=== PATIENT | female | born 1985 | race American Indian/Alaskan Native ===

== ENCOUNTER 2020-05-17 15:13 | Emergency (ER) | payer MEDICAID ==
--- NOTE | 2020-05-17 16:03 | Emergency Department Report ---
ED General Adult HPI - General Chief complaint: Chest Pain Stated complaint: FAST HEART RATE Time Seen by Provider: 05/17/20 15:33 Source: EMS Mode of arrival: Stretcher Limitations: No Limitations - History of Present Illness Initial comments: Patient presents to the emergency department via EMS for heart palpitations. Patient states today she was at home when she felt her heart beating fast as well as have some chest tightness. Per EMS arrival the patient was in SVT and they were able to convert it with vagal maneuver. Patient states that she r ecently stopped smoking but now vapes daily. She also endorses to being a significant caffeine user. Patient denies any illicit drugs or [id number] medications. Patient states now she no longer has any symptoms. -: Sudden Severity scale (0 -10): 0 Improves with: none Worsens with: none Associated Symptoms: denies other symptoms Treatments Prior to Arrival: none - Related Data Previous Rx's Medication Instructions Recorded Last Taken Type Sulfamethoxazole/Trimethoprim 1 each PO BID #14 tablet 05/17/20 Unknown Rx [Bactrim DS TAB] Allergies Allergy/AdvReac Type Severity Reaction Status Date / Time triamcinolone Allergy Hives Verified 05/17/20 15:53 ED Review of Systems ROS: Stated complaint: FAST HEART RATE Other details as noted in HPI Comment: All other systems reviewed and negative Constitutional: denies: chills, fever Eyes: denies: eye pain, eye discharge, vision change ENT: denies: ear pain, throat pain Respiratory: denies: cough, shortness of breath, wheezing Cardiovascular: palpitations. denies: chest pain Endocrine: no symptoms reported Gastrointestinal: denies: abdominal pain, nausea, diarrhea Genitourinary: denies: urgency, dysuria, discharge Musculoskeletal: denies: back pain, joint swelling, arthralgia Skin: denies: rash, lesions Neurological: denies: headache, weakness, paresthesias Psychiatric: denies: anxiety, depression Hematological/Lymphatic: denies: easy bleeding, easy bruising ED Past Medical Hx - Past Medical History Previous Medical History?: No - Surgical History Past Surgical History?: No - Social History Smoking Status: Former Smoker Substance Use Type: None - Medications Home Medications: Home Medications Medication Instructions Recorded Confirmed Last Taken Type Sulfamethoxazole/Trimethoprim 1 each PO BID #14 tablet 05/17/20 Unknown Rx [Bactrim DS TAB] ED Physical Exam - General Limitations: No Limitations General appearance: alert, in no apparent distress - Head Head exam: Present: atraumatic, normocephalic - Eye Eye exam: Present: normal appearance, PERRL, EOMI - ENT ENT exam: Present: mucous membranes moist - Neck Neck exam: Present: normal inspection - Respiratory Respiratory exam: Present: normal lung sounds bilaterally. Absent: respiratory distress - Cardiovascular Cardiovascular Exam: Present: regular rate, normal rhythm. Absent: systolic murmur, diastolic murmur, rubs, gallop - GI/Abdominal GI/Abdominal exam: Present: soft, normal bowel sounds. Absent: distended, tenderness - Extremities Exam Extremities exam: Present: normal inspection - Back Exam Back exam: Present: normal inspection - Neurological Exam Neurological exam: Present: alert, oriented X3, CN II-XII intact. Absent: motor sensory deficit - Psychiatric Psychiatric exam: Present: normal affect, normal mood - Skin Skin exam: Present: warm, dry, intact, normal color. Absent: rash ED Course Vital Signs 05/17/20 05/17/20 05/17/20 15:20 15:30 15:46 Temperature 98.6 F Pulse Rate 67 85 72 Respiratory 14 17 14 Rate Blood Pressure 125/76 110/67 O2 Sat by Pulse 98 99 100 Oximetry 05/17/20 05/17/20 05/17/20 16:00 16:30 17:00 Temperature Pulse Rate 81 73 69 Respiratory 12 10 L 20 Rate Blood Pressure 104/68 99/60 102/55 O2 Sat by Pulse 98 98 96 Oximetry 05/17/20 05/17/20 05/17/20 17:30 18:01 18:31 Temperature Pulse Rate 71 72 68 Respiratory 9 L 22 28 H Rate Blood Pressure 108/56 108/56 108/56 O2 Sat by Pulse 98 98 97 Oximetry 05/17/20 05/17/20 05/17/20 19:01 19:15 19:31 Temperature Pulse Rate 64 66 66 Respiratory 13 12 15 Rate Blood Pressure 108/56 108/56 108/56 O2 Sat by Pulse 99 99 98 Oximetry 05/17/20 05/17/20 19:45 19:49 Temperature 98.1 F Pulse Rate 65 Respiratory 13 Rate Blood Pressure 108/56 O2 Sat by Pulse 100 Oximetry ED Medical Decision Making - Lab Data Result diagrams: 05/17/20 15:53 05/17/20 15:53 Lab Results 05/17/20 05/17/20 05/17/20 Range/Units 15:53 15:53 15:53 WBC 11.4 H (4.5-11.0) K/mm3 RBC 3.77 (3.65-5.03) M/mm3 Hgb 12.4 (10.1-14.3) gm/dl Hct 36.6 (30.3-42.9) % MCV 97 (79-97) fl MCH 33 H (28-32) pg MCHC 34 (30-34) % RDW 12.8 L (13.2-15.2) % Plt Count 217 (140-440) K/mm3 Lymph % (Auto) 15.9 (13.4-35.0) % [place] % (Auto) 6.6 (0.0-7.3) % Eos % (Auto) 0.8 (0.0-4.3) % Baso % (Auto) 0.3 (0.0-1.8) % Lymph # (Auto) 1.8 (1.2-5.4) K/mm3 [place] # (Auto) 0.8 (0.0-0.8) K/mm3 Eos # (Auto) 0.1 (0.0-0.4) K/mm3 Baso # (Auto) 0.0 (0.0-0.1) K/mm3 Seg Neutrophils % 76.4 H (40.0-70.0) % Seg Neutrophils # 8.7 H (1.8-7.7) K/mm3 PT 14.0 (12.2-14.9) Sec. INR 1.06 (0.87-1.13) APTT 32.0 (24.2-36.6) Sec. Sodium 140 (137-145) mmol/L Potassium 3.5 L (3.6-5.0) mmol/L Chloride 105.7 (98-107) mmol/L Carbon Dioxide 22 (22-30) mmol/L Anion Gap 16 mmol/L BUN 10 (7-17) mg/dL Creatinine 0.6 (0.6-1.2) mg/dL Estimated GFR > 60 ml/min BUN/Creatinine Ratio 17 % Glucose 99 (65-100) mg/dL Calcium 8.9 (8.4-10.2) mg/dL Magnesium 2.00 (1.7-2.3) mg/dL Total Bilirubin 0.20 (0.1-1.2) mg/dL AST 17 (5-40) units/L ALT 14 (7-56) units/L Alkaline Phosphatase 45 (35-129) units/L Total Protein 6.8 (6.3-8.2) g/dL Albumin 4.2 (3.9-5) g/dL Albumin/Globulin Ratio 1.6 % Urine Color (Yellow) Urine Turbidity (Clear) Urine pH (5.0-7.0) Ur Specific [place] (1.003-1.030) Urine Protein (Negative) mg/dL Urine Glucose (UA) (Negative) mg/dL Urine Ketones (Negative) mg/dL Urine Blood (Negative) Urine Nitrite (Negative) Urine Bilirubin (Negative) Urine Urobilinogen (<2.0) mg/dL Ur Leukocyte Esterase (Negative) Urine WBC (Auto) (0.0-6.0) /HPF Urine RBC (Auto) (0.0-6.0) /HPF U Epithel Cells (Auto) (0-13.0) /HPF Urine Bacteria (Auto) (Negative) /HPF Urine Mucus /HPF U Marijuana (THC) Screen 05/17/20 05/17/20 Range/Units 17:59 17:59 WBC (4.5-11.0) K/mm3 RBC (3.65-5.03) M/mm3 Hgb (10.1-14.3) gm/dl Hct (30.3-42.9) % MCV (79-97) fl MCH (28-32) pg MCHC (30-34) % RDW (13.2-15.2) % Plt Count (140-440) K/mm3 Lymph % (Auto) (13.4-35.0) % [place] % (Auto) (0.0-7.3) % Eos % (Auto) (0.0-4.3) % Baso % (Auto) (0.0-1.8) % Lymph # (Auto) (1.2-5.4) K/mm3 [place] # (Auto) (0.0-0.8) K/mm3 Eos # (Auto) (0.0-0.4) K/mm3 Baso # (Auto) (0.0-0.1) K/mm3 Seg Neutrophils % (40.0-70.0) % Seg Neutrophils # (1.8-7.7) K/mm3 PT (12.2-14.9) Sec. INR (0.87-1.13) APTT (24.2-36.6) Sec. Sodium (137-145) mmol/L Potassium (3.6-5.0) mmol/L Chloride (98-107) mmol/L Carbon Dioxide (22-30) mmol/L Anion Gap mmol/L BUN (7-17) mg/dL Creatinine (0.6-1.2) mg/dL Estimated GFR ml/min BUN/Creatinine Ratio % Glucose (65-100) mg/dL Calcium (8.4-10.2) mg/dL Magnesium (1.7-2.3) mg/dL Total Bilirubin (0.1-1.2) mg/dL AST (5-40) units/L ALT (7-56) units/L Alkaline Phosphatase (35-129) units/L Total Protein (6.3-8.2) g/dL Albumin (3.9-5) g/dL Albumin/Globulin Ratio % Urine Color Yellow (Yellow) Urine Turbidity Slightly-cloudy (Clear) Urine pH 6.0 (5.0-7.0) Ur Specific [place] 1.026 (1.003-1.030) Urine Protein 30 mg/dl (Negative) mg/dL Urine Glucose (UA) Neg (Negative) mg/dL Urine Ketones Neg (Negative) mg/dL Urine Blood Neg (Negative) Urine Nitrite Neg (Negative) Urine Bilirubin Neg (Negative) Urine Urobilinogen 4.0 (<2.0) mg/dL Ur Leukocyte Esterase Lg (Negative) Urine WBC (Auto) 16.0 H (0.0-6.0) /HPF Urine RBC (Auto) 21.0 (0.0-6.0) /HPF U Epithel Cells (Auto) 17.0 H (0-13.0) /HPF Urine Bacteria (Auto) 1+ (Negative) /HPF Urine Mucus 3+ /HPF U Marijuana (THC) Screen Presumptive positive - EKG Data -: EKG Interpreted by Ms EKG shows normal: sinus rhythm Rate: normal - Radiology Data Radiology results: report reviewed - Medical Decision Making Review of the patient's twelve-lead from EMS shows SVT Discussed the patient with Dr. Snowden and was agreed that we will send the patient home metoprolol Reviewed the patient's monitor during her ED stay her heart rate ranged from 60 to 70 bpm so at this time I thought it would be best not to give the patient metoprolol for home Also review of the patient's urinalysis shows that she is positive for THC Review of laboratory values shows a UTI Critical care attestation.: If time is entered above; I have spent that time in minutes in the direct care o f this critically ill patient, excluding procedure time. ED Disposition Clinical Impression: Palpitations, Arrhythmia, UTI (urinary tract infection) Disposition: DC-01 TO HOME OR SELFCARE Is pt being admited?: No Does the pt Need Aspirin: No Condition: Stable Instructions: Supraventricular Tachycardia (ED) Additional Instructions: return if worse Referrals: JUANITA SNOWDEN MD [Staff Physician] - 24 Hours Time of Disposition: 19:56
[2020-05-17 16:21] LABS: Basophils % (Auto) 0.3 % (0.0-1.8); Eosinophils # (Auto) 0.1 K/mm3 (0.0-0.4); Eosinophils % (Auto) 0.8 % (0.0-4.3); Hematocrit 36.6 % (30.3-42.9); Hemoglobin 12.4 gm/dl (10.1-14.3); Lymphocytes # (Auto) 1.8 K/mm3 (1.2-5.4); Lymphocytes % (Auto) 15.9 % (13.4-35.0); Mean Corpuscular HGB Conc 34 % (30-34); Mean Corpuscular Volume 97 fl (79-97); Monocytes # (Auto) 0.8 K/mm3 (0.0-0.8); Monocytes % (Auto) 6.6 % (0.0-7.3); Platelet Count 217 K/mm3 (140-440); Red Blood Count 3.77 M/mm3 (3.65-5.03); Red Cell Distribution Width 12.8 % (13.2-15.2)
[2020-05-17 16:31] LABS: INR 1.06 (0.87-1.13)
[2020-05-17 16:36] LABS: Alanine Aminotransferase 14 units/L (7-56); Albumin 4.2 g/dL (3.9-5); Blood Urea Nitrogen 10 mg/dL (7-17); Calcium 8.9 mg/dL (8.4-10.2); Hemolysis Index 5
[2020-05-17 16:41] LABS: BUN/Creatinine Ratio 17
--- NOTE | 2020-05-17 16:48 | XRay Report ---
CHEST 1 VIEW 05/17/2020 3:41 PM INDICATION / CLINICAL INFORMATION: palpitations. COMPARISON: None available. FINDINGS: SUPPORT DEVICES: None. HEART / MEDIASTINUM: No significant abnormality. LUNGS / PLEURA: No significant pulmonary or pleural abnormality. No pneumothorax. ADDITIONAL FINDINGS: No significant additional findings. IMPRESSION: 1. No acute findings. Signer Name: Rm Frias MD Signed: 05/17/2020 4:44 PM Workstation Name: [id number]
[2020-05-17 18:00] VITALS: BP 108/56
[2020-05-17 19:38] LABS: Bacteria,Urine 1+ /HPF (Negative); Bilirubin,Urine NEG (Negative); Blood,Urine NEG (Negative); Color,Urine Yellow (Yellow); Mucus,Urine 3+ /HPF
[2020-05-17 19:44] LABS: Amphetamine Screen,Urine PRESUMPTIVE NEGATIVE; Benzodiazepines Screen,Urine PRESUMPTIVE NEGATIVE; Cannabinoid Screen,Urine PRESUMPTIVE POSITIVE; Cocaine Screen,Urine PRESUMPTIVE NEGATIVE; Methadone Screen,Urine PRESUMPTIVE NEGATIVE; Opiate Screen,Urine PRESUMPTIVE NEGATIVE
== END 2020-05-17 20:34 | disposition home or self-care (01) ==
LOC: ED 15:13
DX: I49.9 Cardiac arrhythmia, unspecified (principal); N39.0 Urinary tract infection, site not specified; R00.2 Palpitations; Z88.8 Allergy status to other drugs, medicaments and biological substances; Z79.899 Other long term (current) drug therapy; Z87.891 Personal history of nicotine dependence
CPT/HCPCS: 36415; 71045; 80053; 80307; 81001; 83735; 85025; 85610; 85730; 87086; 93005

== ENCOUNTER 2020-05-19 12:24 | Emergency (ER) | payer MEDICAID ==
--- NOTE | 2020-05-19 12:58 | Emergency Department Report ---
ED Palpitations HPI - General Chief Complaint: Arrhythmia/Palpitations Stated Complaint: CHEST PAIN Time Seen by Provider: 05/19/20 12:41 Source: patient, EMS Mode of arrival: Stretcher Limitations: No Limitations - History of Present Illness Initial Comments: Chief complaint: Rapid heartbeat HPI: This is a 34-year-old female who was evaluated at this hospital 2 days ago for SVT. She also was evaluated at [facility] 2 times since ED encou nter here on Sunday. Today she had rapid heartbeat and palpitations. EMS discovered SVT. With carotid massage the rhythm converted to sinus rhythm. Patient has been in her normal state of health. She started vaping e-cigarettes 3 weeks ago. She also smokes marijuana. She is attempting to stop smoking cigarettes. Patient is not taking oral contraceptives. She has been quite healthy otherwise. According to EMR patient windows mobile developer was consulted. Home medication metoprolol was considered. However patient's heart rate at that time was too low to tolerate metoprolol. Radiology impression of second set of left knee radiographs reveal satisfactory reduction of the left patella without fracture or significant degenerative changes. Mild soft tissue swelling. I also personally reviewed the images. I reviewed EKG obtained on 05/17/2020 normal sinus rhythm, I do not detect delta wave morphology indicative of WPW MD Complaint: rapid heart beat -: Sudden, This morning Context: occured during rest Arrythmia History: SVT Associated Symptoms: denies other symptoms Treatments Prior to Arrival: vagal maneuvers (Carotid massage) - Related Data Previous Rx's Medication Instructions Recorded Last Taken Type Sulfamethoxazole/Trimethoprim 1 each PO BID #14 tablet 05/17/20 Unknown Rx [Bactrim DS TAB] Metoprolol [Lopressor TAB] 1 tab PO DAILY #30 tablet 05/19/20 Unknown Rx Allergies Allergy/AdvReac Type Severity Reaction Status Date / Time triamcinolone Allergy Hives Verified 05/17/20 15:53 ED Review of Systems ROS: Stated complaint: CHEST PAIN Other details as noted in HPI Comment: All other systems reviewed and negative Constitutional: denies: fever, malaise Respiratory: denies: cough, shortness of breath Cardiovascular: denies: chest pain Gastrointestinal: denies: abdominal pain, nausea, vomiting Skin: denies: rash, lesions ED Past Medical Hx - Past Medical History Previous Medical History?: Yes Additional medical history: SVT - Surgical History Past Surgical History?: No - Social History Smoking Status: Former Smoker Substance Use Type: Marijuana - Medications Home Medications: Home Medications Medication Instructions Recorded Confirmed Last Taken Type Sulfamethoxazole/Trimethoprim 1 each PO BID #14 tablet 05/17/20 Unknown Rx [Bactrim DS TAB] Metoprolol [Lopressor TAB] 1 tab PO DAILY #30 tablet 05/19/20 Unknown Rx ED Physical Exam - General Limitations: No Limitations General appearance: alert, in no apparent distress - Head Head exam: Present: atraumatic, normocephalic - Eye Eye exam: Present: normal appearance - ENT ENT exam: Present: mucous membranes moist - Neck Neck exam: Present: normal inspection, full ROM - Respiratory Respiratory exam: Present: normal lung sounds bilaterally. Absent: respiratory distress, wheezes, rales, rhonchi - Cardiovascular Cardiovascular Exam: Present: regular rate, normal rhythm, normal heart sounds. Absent: systolic murmur, diastolic murmur, rubs, gallop - GI/Abdominal GI/Abdominal exam: Present: soft, normal bowel sounds. Absent: distended, tenderness, guarding, rebound - Extremities Exam Extremities exam: Present: normal inspection - Neurological Exam Neurological exam: Present: alert, oriented X3 - Psychiatric Psychiatric exam: Present: normal affect, normal mood - Skin Skin exam: Present: warm, dry, intact, normal color. Absent: rash ED Course Vital Signs 05/19/20 05/19/20 05/19/20 12:47 13:00 13:16 Pulse Rate 114 H 85 Respiratory 10 L 10 L 13 Rate Blood Pressure 110/68 110/68 O2 Sat by Pulse 99 99 100 Oximetry 05/19/20 05/19/20 05/19/20 13:30 13:41 14:00 Pulse Rate 92 H 73 68 Respiratory 11 L 23 Rate Blood Pressure 110/63 110/63 111/65 O2 Sat by Pulse 97 100 Oximetry 05/19/20 05/19/20 05/19/20 14:30 15:00 15:30 Pulse Rate 73 68 63 Respiratory 11 L 14 12 Rate Blood Pressure 118/55 126/48 105/61 O2 Sat by Pulse 98 97 96 Oximetry - Reevaluation(s) Reevaluation #1: 05/19/20 13:08 Patient has sudden onset of chest pain. Heart rate 142 bpm on monitor. With deep breathing heart rate rapidly decreased. ED Medical Decision Making - Lab Data Result diagrams: 05/19/20 14:14 05/19/20 14:14 Laboratory Results - last 24 hr 05/19/20 05/19/20 05/19/20 14:14 14:14 14:14 WBC 12.9 H RBC 4.17 Hgb 13.5 Hct 39.7 MCV 95 MCH 33 H MCHC 34 RDW 12.6 L Plt Count 238 Lymph % (Auto) 12.8 L [place] % (Auto) 5.7 Eos % (Auto) 0.1 Baso % (Auto) 0.2 Lymph # (Auto) 1.7 [place] # (Auto) 0.7 Eos # (Auto) 0.0 Baso # (Auto) 0.0 Seg Neutrophils % 81.2 H Seg Neutrophils # 10.4 H D-Dimer 175.50 Sodium 139 Potassium 3.5 L Chloride 104.6 Carbon Dioxide 20 L Anion Gap 18 BUN 8 Creatinine 0.6 Estimated GFR > 60 BUN/Creatinine Ratio 13 Glucose 78 Calcium 9.1 NT-Pro-B Natriuret Pep 70.25 TSH 05/19/20 14:14 WBC RBC Hgb Hct MCV MCH MCHC RDW Plt Count Lymph % (Auto) [place] % (Auto) Eos % (Auto) Baso % (Auto) Lymph # (Auto) [place] # (Auto) Eos # (Auto) Baso # (Auto) Seg Neutrophils % Seg Neutrophils # D-Dimer Sodium Potassium Chloride Carbon Dioxide Anion Gap BUN Creatinine Estimated GFR BUN/Creatinine Ratio Glucose Calcium NT-Pro-B Natriuret Pep TSH 1.010 - EKG Data -: EKG Interpreted by Me EKG shows normal: sinus rhythm, axis, intervals, QRS complexes, ST-T waves Rate: normal - EKG Data When compared to previous EKG there are: no significant change Interpretation: normal EKG 05/19/20 13:21 EKG obtained 1309 EKG interpreted by nh Normal sinus rhythm normal axis QRS 96 ms ID 127 ms QTC within normal limits. No ST elevation no delta wave morphology. Unchanged from 05/19/2020 - Medical Decision Making Patient presents with recurrent SVT. SVT converted to sinus rhythm using car otid massage performed by EMS. Patient does not has risk factors for pulmonary embolism. I reviewed today's EKG and previous EKG, no indication of WPW. Patient has normal ID interval. Normal QRS interval. No delta wave morphology. Considering patient's heart rate was approximately 150 bpm WPW not likely in this scenario. Patient had 3 recurrences of tachycardia. According to the quality assurance monitor final, P waves are present. The I reviewed the quality assurance monitor final during episodes, the last 2 episodes of tachycardia was obviously sinus tachycardia. Heart rate max 150 to 160 bpm which rapidly resolved with deep breathing. Consequently I have initiated investigation for causes of sinus tachycardia such as hyperthyroidism, pulmonary embolism. CBC within normal labs with exception of mild leukocytosis. No evidence of infection on clinical exam. Chemistry unremarkable. TSH D-dimer within normal limits. . Other consideration is pericarditis myocarditis. Patient has follow-up with windows mobile developer 1 PM tomorrow. She understands to take next dose of metoprolol in the morning. She has not had subsequent episodes of tachycardia after receiving metoprolol. Patient tolerated metoprolol without bradycardia or hypotension. Patient also understands follow-up with outpatient primary care physician. Critical care attestation.: If time is entered above; I have spent that time in minutes in the direct care of this critically ill patient, excluding procedure time. ED Disposition Clinical Impression: SVT (supraventricular tachycardia), Sinus tachycardia Disposition: DC-01 TO HOME OR SELFCARE Is pt being admited?: No Does the pt Need Aspirin: No Condition: Stable Instructions: Supraventricular Tachycardia (ED) Prescriptions: Metoprolol [Lopressor TAB] 1 tab PO DAILY #30 tablet Referrals: BOBO HE MD [Staff Physician] - 3-5 Days
[2020-05-19] MEDS ORDERED: METOPROLOL TARTRATE 50 MG TAB PO ONE (13:25)
[2020-05-19 14:40] LABS: Basophils % (Auto) 0.2 % (0.0-1.8); Eosinophils % (Auto) 0.1 % (0.0-4.3); Hematocrit 39.7 % (30.3-42.9); Hemoglobin 13.5 gm/dl (10.1-14.3); Lymphocytes # (Auto) 1.7 K/mm3 (1.2-5.4); Lymphocytes % (Auto) 12.8 % (13.4-35.0); Mean Corpuscular HGB Conc 34 % (30-34); Mean Corpuscular Volume 95 fl (79-97); Monocytes # (Auto) 0.7 K/mm3 (0.0-0.8); Monocytes % (Auto) 5.7 % (0.0-7.3); Platelet Count 238 K/mm3 (140-440); Red Blood Count 4.17 M/mm3 (3.65-5.03); Red Cell Distribution Width 12.6 % (13.2-15.2)
[2020-05-19 15:03] LABS: Blood Urea Nitrogen 8 mg/dL (7-17); Calcium 9.1 mg/dL (8.4-10.2); Hemolysis Index 7
[2020-05-19 15:11] LABS: BUN/Creatinine Ratio 13
[2020-05-19 15:57] VITALS: BP 105/61
== END 2020-05-19 16:20 | disposition home or self-care (01) ==
LOC: ED 12:24
DX: I47.1 Supraventricular tachycardia (principal); I49.5 Sick sinus syndrome; F12.10 Cannabis abuse, uncomplicated; Z87.891 Personal history of nicotine dependence; Z79.899 Other long term (current) drug therapy; Z88.8 Allergy status to other drugs, medicaments and biological substances
CPT/HCPCS: 36415; 80048; 83880; 84443; 85025; 85379; 93005

== ENCOUNTER 2020-05-20 04:12 | Emergency (ER) | payer MEDICAID ==
[2020-05-20 05:12] LABS: Basophils % (Auto) 0.4 % (0.0-1.8); Eosinophils # (Auto) 0.1 K/mm3 (0.0-0.4); Eosinophils % (Auto) 0.7 % (0.0-4.3); Hematocrit 38.7 % (30.3-42.9); Hemoglobin 13.3 gm/dl (10.1-14.3); Lymphocytes # (Auto) 2.2 K/mm3 (1.2-5.4); Lymphocytes % (Auto) 21.2 % (13.4-35.0); Mean Corpuscular HGB Conc 34 % (30-34); Mean Corpuscular Volume 96 fl (79-97); Monocytes # (Auto) 0.7 K/mm3 (0.0-0.8); Monocytes % (Auto) 6.6 % (0.0-7.3); Platelet Count 241 K/mm3 (140-440); Red Blood Count 4.05 M/mm3 (3.65-5.03); Red Cell Distribution Width 12.7 % (13.2-15.2)
[2020-05-20 05:31] LABS: Blood Urea Nitrogen 8 mg/dL (7-17); Calcium 9.3 mg/dL (8.4-10.2); Hemolysis Index 5
[2020-05-20 05:44] LABS: BUN/Creatinine Ratio 13
--- NOTE | 2020-05-20 05:45 | XRay Report ---
CHEST 1 VIEW INDICATION / CLINICAL INFORMATION: Chest Pain. COMPARISON: 05/17/2020 FINDINGS: SUPPORT DEVICES: None. HEART / MEDIASTINUM: No significant abnormality. LUNGS / PLEURA: No significant pulmonary or pleural abnormality.. No pneumothorax. ADDITIONAL FINDINGS: No significant additional findings. IMPRESSION: 1. No acute findings. Signer Name: Stevie Oconnor MD Signed: 05/20/2020 5:41 AM Workstation Name: [id number]
[2020-05-20] MEDS ORDERED: METOPROLOL TARTRATE 5 MG/5 ML INJ IV ONE (07:24)
[2020-05-20] MEDS ORDERED: SODIUM CHLORIDE 0.9% 500 ML 500 ML IV ONE (07:24)
--- NOTE | 2020-05-20 07:39 | Emergency Department Report ---
HPI - General Chief Complaint: Dizziness Time Seen by Provider: 05/20/20 07:00 - HPI HPI: This is a 34-year-old female who presents to the emergency department for the third time in 4 days with a complaint of palpitations and tachycardia. The patient initially presented on 05/17/2020 via EMS and was found to have SVT but at that time it converted with vagal maneuvers. Cardiology was contacted and the patient was discharged home on metoprolol. The patient returned yesterday with the same symptoms. During this visit the patient had multiple episodes in which she had sinus tachycardia going up into the 140s. Once again, the patient is able to get the heart rate to come down with deep breathing and vagal maneuvers. She had a further work-up for etiology of sinus tachycardia, including TSH and D-dimer, but everything resulted as negative or within normal limits and the patient was discharged home. The patient has an appointment at 1 PM today with someone from [facility] cardiology. Overnight, as well as earlier this morning, the patient once again began having palpitations and tachycardia and presents again for further evaluation. Other than this recent SVT/tachycardia, the patient does not have any other past medical history. Patiently recently quit smoking cigarettes but has been using electronic vaping. She denies any illicit drugs. She denies any fever, chest pain, lower extremity swelling, nausea, vomiting or diaphoresis. No recent travel or sick contacts at home. ED Past Medical Hx - Past Medical History Previous Medical History?: Yes Additional medical history: SVT - Surgical History Past Surgical History?: No - Social History Smoking Status: Former Smoker - Medications Home Medications: Home Medications Medication Instructions Recorded Confirmed Last Taken Type Sulfamethoxazole/Trimethoprim 1 each PO BID #14 tablet 05/17/20 Unknown Rx [Bactrim DS TAB] Metoprolol [Lopressor TAB] 1 tab PO DAILY #30 tablet 05/19/20 Unknown Rx ED Review of Systems ROS: Stated complaint: DIZZINESS/HOT FLASHES Other details as noted in HPI Comment: All other systems reviewed and negative Constitutional: denies: chills, fever Eyes: denies: eye pain, vision change ENT: denies: ear pain, throat pain Respiratory: denies: cough, shortness of breath Cardiovascular: palpitations. denies: chest pain Gastrointestinal: denies: abdominal pain, vomiting Genitourinary: denies: dysuria, discharge Musculoskeletal: denies: back pain, arthralgia Skin: denies: rash, lesions Neurological: denies: headache, weakness Physical Exam - Physical Exam Vital Signs: Vital Signs 05/20/20 04:19 Temperature 98.2 F Pulse Rate 78 Respiratory 18 Rate Blood Pressure 117/70 O2 Sat by Pulse 98 Oximetry Physical Exam: GENERAL: The patient is well-developed well-nourished. HENT: Normocephalic. Atraumatic. Patient has moist mucous membranes. EYES: Extraocular motions are intact. NECK: Supple. Trachea is midline. CHEST/LUNGS: Clear to auscultation. There is no respiratory distress noted. HEART/CARDIOVASCULAR: Regular. There is no tachycardia. There is no murmur. ABDOMEN: Abdomen is soft, nontender. Patient has normal bowel sounds. SKIN: Skin is warm and dry. NEURO: The patient is awake, alert, and oriented. The patient is cooperative. Normal speech. MUSCULOSKELETAL: There is no tenderness or deformity. There is no limitation range of motion. ED Course Vital Signs 05/20/20 04:19 Temperature 98.2 F Pulse Rate 78 Respiratory 18 Rate Blood Pressure 117/70 O2 Sat by Pulse 98 Oximetry - Consultations Consultation #1: 05/20/20 07:50 I spoke with the floral associate on-call for [facility], Dr. Horvath. We discussed the patient's previous and current presentations, her treatment, and the fact that she has an appointment with them today at 1 PM. He recommends that we monitor for another hour or so and if the symptoms subside, then the patient can follow-up outpatient for her 1 PM appointment. If the patient begins to have further episodes of moderate to severe tachycardia or SVT, then the patient should be admitted. ED Medical Decision Making - Lab Data Result diagrams: 05/20/20 04:40 05/20/20 04:40 - EKG Data -: EKG Interpreted by Me EKG shows normal: sinus rhythm (PACs), axis, intervals, QRS complexes, ST-T waves Rate: normal - EKG Data When compared to previous EKG there are: no significant change Interpretation: unchanged when compared t (05/17/20) - Radiology Data Radiology results: image reviewed interpreted by me: Chest x-ray does not show any acute process. There are no pleural effusions, obvious pneumonia and there is no pneumothorax. No significant cardiomegaly. - Medical Decision Making This patient presents with a return of her palpitations and tachycardia and today's visit is the third visit in 4 days. During my initial examination, I did see one instance in which the heart rate went up into the 130s but quickly came back down when the patient did some slow deep breathing, vagal maneuvers. The rest of the patient's ED course has been unremarkable and the heart rate has remained within normal limits. An EKG was done that does not show any ST elevation AL or dysrhythmia. Chest x-ray does not show any pneumonia, pleural effusions, pneumothorax, or any acute process. Her labs have been unremarkable including CBC, metabolic panel, and negative troponins x2. The patient was seen here yesterday and had a normal thyroid level and a negative D-dimer at that time. I spoke with cardiology, who agrees with the plan to give the patient a dose of metoprolol. She was reevaluated multiple times over close to 6 hours in the emergency department and there has been no return of any significant or sustained tachycardia or any signs of SVT. She has an appointment with [facility] heart cardiology today at 1 PM and will be discharged to follow-up with them at her scheduled appointment. She will return to the emergency department with any worsening of her symptoms or with any acute distress. Critical Care Time: No Critical care attestation.: If time is entered above; I have spent that time in minutes in the direct care of this critically ill patient, excluding procedure time. ED Disposition Clinical Impression: Palpitations, Tachycardia Disposition: DC-01 TO HOME OR SELFCARE Is pt being admited?: No Condition: Stable Instructions: Palpitations (ED) Additional Instructions: Please follow-up with the floral associate today at 1 PM as previously scheduled. Return to the emergency department immediately with any return of your symptoms or with any acute distress. Referrals: [facility] [Provider Group] - 05/20/20 1:00 pm Time of Disposition: 09:54
[2020-05-20 11:18] VITALS: BP 103/57
== END 2020-05-20 10:05 | disposition home or self-care (01) ==
LOC: ED 04:12
DX: R00.2 Palpitations (principal); R00.0 Tachycardia, unspecified; Z87.891 Personal history of nicotine dependence; Z79.899 Other long term (current) drug therapy; Z88.8 Allergy status to other drugs, medicaments and biological substances
CPT/HCPCS: 36415; 71045; 80048; 84484; 84703; 85025; 93005; 96361; 96374; 99284; J7040

== ENCOUNTER 2020-05-20 18:24 | Emergency (ER) | payer MEDICAID ==
[2020-05-20 18:57] LABS: Basophils % (Auto) 0.4 % (0.0-1.8); Eosinophils % (Auto) 0.2 % (0.0-4.3); Hematocrit 37.8 % (30.3-42.9); Lymphocytes # (Auto) 1.8 K/mm3 (1.2-5.4); Lymphocytes % (Auto) 15.4 % (13.4-35.0); Mean Corpuscular HGB Conc 34 % (30-34); Mean Corpuscular Volume 95 fl (79-97); Monocytes # (Auto) 0.8 K/mm3 (0.0-0.8); Monocytes % (Auto) 6.5 % (0.0-7.3); Platelet Count 235 K/mm3 (140-440); Red Blood Count 3.99 M/mm3 (3.65-5.03); Red Cell Distribution Width 12.8 % (13.2-15.2)
--- NOTE | 2020-05-20 19:04 | XRay Report ---
CHEST 2 VIEWS INDICATION: MAIN. COMPARISON: Earlier the same day FINDINGS: Support devices: None. Heart: Within normal limits. Lungs: No acute air space or interstitial disease. Pleura: No significant pleural effusion. No pneumothorax. Additional findings: None. IMPRESSION: 1. No acute findings. Signer Name: Jacob Harden MD Signed: 05/20/2020 7:00 PM Workstation Name: [id number]
[2020-05-20 19:07] LABS: Blood Urea Nitrogen 7 mg/dL (7-17); Calcium 9.2 mg/dL (8.4-10.2); Hemolysis Index 14
[2020-05-20 19:16] LABS: BUN/Creatinine Ratio 14
[2020-05-21] MEDS ORDERED: SODIUM CHLORIDE 0.9% 1000 ML 1,000 ML IV ONE (00:09)
--- NOTE | 2020-05-21 00:09 | Emergency Department Report ---
ED Palpitations HPI - General Chief Complaint: Arrhythmia/Palpitations Stated Complaint: ANEXITY Time Seen by Provider: 05/21/20 00:06 Source: patient, EMS Mode of arrival: Wheelchair Limitations: No Limitations - History of Present Illness Initial Comments: Patient is a 34-year-old female that presents emergency room for palpitations. Patient states that her palpitations started this morning. Patient states she was seen here yesterday and discharged to follow-up with a civil litigation attorney. Patient states that the palpitations are intermittent. Patient states she can feel her heart racing. Patient denies shortness of breath. Patient denies chest pain. Patient states it makes her feel anxious. Patient states her anxiety goes to the roof when it happens. Patient states today she went to a fire station and they brought her here to be evaluated. Patient states she is feeling fine now. Patient states her symptoms have resolved. Patient states she was placed on metoprolol twice a day. Patient denies recent travel. Patient denies recent international travel. Patient denies exposure to the novel coronavirus. Patient denies sick contacts. Patient denies fever and chills. Patient denies cough. Patient denies diarrhea. Patient denies coming in contact with anybody with symptoms of the novel coronavirus. MD Complaint: rapid heart beat, "heart racing", palpitations -: Sudden Associated Symptoms: anxiety, other (Weakness). denies: chest pain, shortness o f breath, syncope, near-syncope, nausea/vomiting, diaphoresis, cough Treatments Prior to Arrival: beta-roberto - Related Data Previous Rx's Medication Instructions Recorded Last Taken Type Sulfamethoxazole/Trimethoprim 1 each PO BID #14 tablet 05/17/20 Unknown Rx [Bactrim DS TAB] Metoprolol [Lopressor TAB] 1 tab PO DAILY #30 tablet 05/19/20 Unknown Rx Allergies Allergy/AdvReac Type Severity Reaction Status Date / Time triamcinolone Allergy Hives Verified 05/17/20 15:53 ED Review of Systems ROS: Stated complaint: ANEXITY Other details as noted in HPI Constitutional: weakness. denies: chills, fever Eyes: denies: eye pain, eye discharge, vision change ENT: denies: ear pain, throat pain Respiratory: denies: cough, shortness of breath, wheezing Cardiovascular: palpitations. denies: chest pain Endocrine: no symptoms reported Gastrointestinal: denies: abdominal pain, nausea, diarrhea Genitourinary: denies: urgency, dysuria, discharge Musculoskeletal: denies: back pain, joint swelling, arthralgia Skin: denies: rash, lesions Neurological: denies: headache, weakness, paresthesias Psychiatric: anxiety. denies: depression Hematological/Lymphatic: denies: easy bleeding, easy bruising ED Past Medical Hx - Past Medical History Previous Medical History?: Yes Additional medical history: SVT - Surgical History Past Surgical History?: No - Family History Family history: no significant - Social History Smoking Status: Former Smoker Substance Use Type: None - Medications Home Medications: Home Medications Medication Instructions Recorded Confirmed Last Taken Type Sulfamethoxazole/Trimethoprim 1 each PO BID #14 tablet 05/17/20 Unknown Rx [Bactrim DS TAB] Metoprolol [Lopressor TAB] 1 tab PO DAILY #30 tablet 05/19/20 Unknown Rx ED Physical Exam - General Limitations: No Limitations General appearance: alert, in no apparent distress - Head Head exam: Present: atraumatic, normocephalic - Eye Eye exam: Present: normal appearance - ENT ENT exam: Present: mucous membranes moist - Neck Neck exam: Present: normal inspection - Respiratory Respiratory exam: Present: normal lung sounds bilaterally. Absent: respiratory distress, wheezes, rales, chest wall tenderness - Cardiovascular Cardiovascular Exam: Present: regular rate, normal rhythm. Absent: systolic murmur, diastolic murmur, rubs, gallop - GI/Abdominal GI/Abdominal exam: Present: soft, normal bowel sounds. Absent: distended, tenderness, guarding - Extremities Exam Extremities exam: Present: normal inspection - Back Exam Back exam: Present: normal inspection - Neurological Exam Neurological exam: Present: alert, oriented X3 - Psychiatric Psychiatric exam: Present: normal affect, normal mood - Skin Skin exam: Present: warm, dry, intact, normal color. Absent: rash ED Course Vital Signs 05/20/20 05/21/20 05/21/20 18:26 00:33 01:00 Temperature 98.1 F Pulse Rate 64 61 56 L Respiratory 18 31 H 20 Rate Blood Pressure 109/55 Blood Pressure 116/63 [Right] O2 Sat by Pulse 97 99 99 Oximetry 05/21/20 01:30 Temperature Pulse Rate 57 L Respiratory 18 Rate Blood Pressure 99/54 Blood Pressure [Right] O2 Sat by Pulse 99 Oximetry - Reevaluation(s) Reevaluation #1: Patient on a cryptographic technician. Patient's cryptographic technician reviewed. Patient has not had any tachycardia while in the ER. Patient states she is asymptomatic. Patient states she is feeling fine. Patient given fluids. I discussed all results and clinical findings with patient. I discussed plan of care with patient. Patient agrees with plan of care. Patient is stable for discharge. Patient will be discharged home. Patient given discharge instructions. Patient voiced understanding of discharge instructions. 05/21/20 01:43 ED Medical Decision Making - Lab Data Result diagrams: 05/20/20 18:37 05/20/20 18:37 - EKG Data -: EKG Interpreted by Me EKG shows normal: sinus rhythm, axis, intervals, QRS complexes, ST-T waves Rate: normal - Radiology Data Radiology results: report reviewed, image reviewed interpreted by me: Chest x-ray: No pneumonia, no pneumothorax, no foreign body, no osseous findings, no acute findings - Medical Decision Making Patient is a 34-year-old female that presents emergency room for palpitations. Patient states she was seen and started on metoprolol. Patient states she was referred to a civil litigation attorney. Patient states she will see the civil litigation attorney but I will see the cardiology. Patient states then her symptoms returned and she came back to the emergency room to be evaluated. Patient's EKG was within normal limits. Patient's labs are unremarkable and normal. Patient's chest x-ray negative. Patient is stable for discharge. Patient was monitored for a lengthy amount of time in the ER and patient symptoms completely resolved and the patient did not have any more palpitations or symptoms while in the ER. Patient also had no arrhythmias on EKG or cardiac monitoring. Patient stable for discharge. Patient given discharge directions. - Differential Diagnosis Palpitations, tachycardic rhythm, dehydration, electrolyte imbalance. Critical care attestation.: If time is entered above; I have spent that time in minutes in the direct care of this critically ill patient, excluding procedure time. ED Disposition Clinical Impression: Palpitations, Anxiety Disposition: DC-01 TO HOME OR SELFCARE Is pt being admited?: No Does the pt Need Aspirin: No Condition: Stable Instructions: Supraventricular Tachycardia (ED), Palpitations (ED), Generalized Anxiety Disorder (ED) Additional Instructions: Patient to follow-up with primary care in 2 to 3 days. Patient to follow-up with civil litigation attorney in 2 to 3 days. Patient to rest. Patient to increase water. Patient to avoid strenuous exercise or heavy lifting until cleared by civil litigation attorney. Patient to continue all medications. Patient to return to the ER if condition worsens, changes or new symptoms arise. Referrals: PRIMARY CARE, [Primary Care Provider] - 2-3 Days CECILIA OWENS MD [Staff Physician] - 2-3 Days Time of Disposition: 01:45
[2020-05-21 03:39] VITALS: BP 102/54
== END 2020-05-21 03:30 | disposition home or self-care (01) ==
LOC: ED 18:24
DX: R00.2 Palpitations (principal); F41.9 Anxiety disorder, unspecified; Z87.891 Personal history of nicotine dependence; Z79.899 Other long term (current) drug therapy; Z88.8 Allergy status to other drugs, medicaments and biological substances
CPT/HCPCS: 36415; 71046; 80048; 84484; 85025; 93005; 96360; 99284; J7030

== ENCOUNTER 2020-05-21 21:59 | Emergency (ER) | payer MEDICAID ==
[2020-05-21 22:43] VITALS: BP 107/69
[2020-05-21 23:19] LABS: Basophils # (Auto) 0.1 K/mm3 (0.0-0.1); Basophils % (Auto) 0.5 % (0.0-1.8); Eosinophils # (Auto) 0.1 K/mm3 (0.0-0.4); Eosinophils % (Auto) 0.5 % (0.0-4.3); Hematocrit 36.2 % (30.3-42.9); Hemoglobin 12.6 gm/dl (10.1-14.3); Lymphocytes % (Auto) 18.5 % (13.4-35.0); Mean Corpuscular HGB Conc 35 % (30-34); Mean Corpuscular Volume 95 fl (79-97); Monocytes # (Auto) 0.8 K/mm3 (0.0-0.8); Monocytes % (Auto) 7.1 % (0.0-7.3); Platelet Count 245 K/mm3 (140-440); Red Blood Count 3.82 M/mm3 (3.65-5.03); Red Cell Distribution Width 12.6 % (13.2-15.2)
[2020-05-21 23:36] LABS: Blood Urea Nitrogen 7 mg/dL (7-17); Calcium 9.6 mg/dL (8.4-10.2); Hemolysis Index 7
[2020-05-21 23:42] LABS: BUN/Creatinine Ratio 14
[2020-05-22] MEDS ORDERED: SODIUM CHLORIDE 0.9% 1000 ML 1,000 ML IV ONE (07:39)
[2020-05-22 08:19] LABS: Bacteria,Urine 1+ /HPF (Negative); Bilirubin,Urine NEG (Negative); Blood,Urine MOD (Negative); Color,Urine Yellow (Yellow); Mucus,Urine FEW /HPF; Protein,Urine <15 mg/dL mg/dL (Negative)
--- NOTE | 2020-05-22 09:49 | Emergency Department Report ---
ED General Adult HPI - General Chief complaint: Weakness Stated complaint: WEAKNESS Time Seen by Provider: 05/22/20 07:31 Source: patient Mode of arrival: Stretcher Limitations: No Limitations - History of Present Illness Initial comments: 34-year-old female reports to the emergency room complaining of feeling weak nausea and no appetite. This is her fourth visit to this emergency room in 5 days. On 1018 she initially reported to this emergency room she was found to be in SVT and can which converted with vagal maneuvers. Patient was then referred to [facility] cardiology where she was seen yesterday and she currently has Holter monitor on until 3:30 PM today she also is scheduled to see lock operator again on Sunday for an echocardiogram. Patient states she was prescribed propranolol and Xanax and she has not taken a dose today. Patient denies chest pain she denies shortness of breath she denies fever and chills . She reports being a former smoker of cigarettes and marijuana which she has recently quit Severity scale (0 -10): 0 - Related Data Allergies Allergy/AdvReac Type Severity Reaction Status Date / Time triamcinolone Allergy Hives Verified 05/17/20 15:53 ED Review of Systems ROS: Stated complaint: WEAKNESS Other details as noted in HPI Comment: All other systems reviewed and negative Constitutional: no symptoms reported, weakness. denies: chills, fever ENT: denies: ear pain, hearing loss Cardiovascular: denies: chest pain, dyspnea on exertion, syncope, paroxysmal nocturnal dyspnea Endocrine: no symptoms reported Gastrointestinal: denies: abdominal pain, nausea, vomiting Musculoskeletal: denies: back pain Psychiatric: anxiety. denies: auditory hallucinations, visual hallucinations, homicidal thoughts ED Past Medical Hx - Past Medical History Previous Medical History?: Yes Hx Psychiatric Treatment: Yes (Anxiety) Additional medical history: SVT - Surgical History Past Surgical History?: Yes Additional Surgical History: X 2 - Social History Smoking Status: Never Smoker Substance Use Type: None ED Physical Exam - General Limitations: No Limitations General appearance: alert - Head Head exam: Present: atraumatic - Eye Eye exam: Present: normal appearance - ENT ENT exam: Present: normal exam, mucous membranes moist - Neck Neck exam: Present: normal inspection, full ROM - Respiratory Respiratory exam: Present: normal lung sounds bilaterally. Absent: respiratory distress, wheezes, rales, rhonchi, stridor - Cardiovascular Cardiovascular Exam: Present: regular rate, normal heart sounds. Absent: systolic murmur, diastolic murmur - GI/Abdominal GI/Abdominal exam: Present: soft. Absent: distended, tenderness - Rectal Rectal exam: Present: deferred - Extremities Exam Extremities exam: Present: normal inspection - Back Exam Back exam: Present: normal inspection - Neurological Exam Neurological exam: Present: alert, oriented X3 - Psychiatric Psychiatric exam: Present: normal affect, normal mood - Skin Skin exam: Present: warm, dry, intact, normal color ED Course Vital Signs 05/21/20 22:42 Temperature 98.4 F Pulse Rate 87 Respiratory 18 Rate Blood Pressure 107/69 [Left] O2 Sat by Pulse 100 Oximetry ED Medical Decision Making - Lab Data Result diagrams: 05/21/20 23:02 05/21/20 23:02 - Radiology Data Radiology results: report reviewed - Medical Decision Making Labs chest x-ray and previous visit and results are reviewed. Patient is under cardiology care. Patient after taking a dose of her propranolol and Xanax which she had with her. She is resting comfortably and is in no distress. At this time it is my opinion that patient is safe to be discharged and continue with follow-up with cardiology. She has an appointment with cardiology on Sunday. Echo scheduled for Sunday. scheduled and she is currently wearing her heart monitor Critical Care Time: No Critical care attestation.: If time is entered above; I have spent that time in minutes in the direct care of this critically ill patient, excluding procedure time. ED Disposition Clinical Impression: Anxiety, Palpitations Disposition: TO HOME OR SELFCARE Is pt being admited?: No Does the pt Need Aspirin: No Condition: Stable Instructions: Generalized Anxiety Disorder (ED) Additional Instructions: Continue with your Cardiology appointment on Sunday. Follow up with PCP in 3-5 days. Return to ER for worsening symptoms. Continue with your current medications. Referrals: PRIMARY CARE, [Primary Care Provider] - 3-5 Days Time of Disposition: 10:00
== END 2020-05-22 10:10 | disposition home or self-care (01) ==
LOC: ED 21:59
DX: R00.2 Palpitations (principal); F41.9 Anxiety disorder, unspecified; Z98.890 Other specified postprocedural states; Z88.8 Allergy status to other drugs, medicaments and biological substances
CPT/HCPCS: 36415; 80048; 81001; 85025

== ENCOUNTER 2020-05-23 05:35 | Emergency (ER) | payer MEDICAID ==
[2020-05-23 05:43] VITALS: BP 114/75
--- NOTE | 2020-05-23 06:17 | XRay Report ---
CHEST 1 VIEW 05/23/2020 5:05 AM INDICATION / CLINICAL INFORMATION: Chest Pain. COMPARISON: 05/20/20 FINDINGS: SUPPORT DEVICES: None. HEART / MEDIASTINUM: No significant abnormality. LUNGS / PLEURA: No significant pulmonary or pleural abnormality. No pneumothorax. ADDITIONAL FINDINGS: Electronic device objects over the upper left hemithorax. IMPRESSION: 1. No acute findings. No significant change. Signer Name: Rm Frias MD Signed: 05/23/2020 6:13 AM Workstation Name: [id number]
[2020-05-23 06:27] LABS: Basophils % (Auto) 0.5 % (0.0-1.8); Eosinophils # (Auto) 0.1 K/mm3 (0.0-0.4); Eosinophils % (Auto) 0.9 % (0.0-4.3); Hemoglobin 14.4 gm/dl (10.1-14.3); Lymphocytes # (Auto) 2.4 K/mm3 (1.2-5.4); Lymphocytes % (Auto) 22.9 % (13.4-35.0); Mean Corpuscular HGB Conc 34 % (30-34); Mean Corpuscular Volume 95 fl (79-97); Monocytes # (Auto) 0.6 K/mm3 (0.0-0.8); Platelet Count 282 K/mm3 (140-440); Red Blood Count 4.45 M/mm3 (3.65-5.03); Red Cell Distribution Width 12.5 % (13.2-15.2)
[2020-05-23 06:46] LABS: Blood Urea Nitrogen 8 mg/dL (7-17); Hemolysis Index 20
[2020-05-23 06:48] LABS: BUN/Creatinine Ratio 11
--- NOTE | 2020-05-23 08:51 | Emergency Department Report ---
ED Chest Pain HPI - General Chief Complaint: Chest Pain Stated Complaint: HEART RATE FAST Time Seen by Provider: 05/23/20 08:25 Source: patient Mode of arrival: Ambulatory Limitations: No Limitations - History of Present Illness Initial Comments: Patient is a 34-year-old F [place] female who is a former tobacco and marijuana user who is here for her fifth visit in the last week. Patient is initial visit she was in SVT prior to arrival. Patient states she is continued to have episodes of chest pain were feels like something sitting on her chest. She feels very short of breath with it but denies nausea vomiting or diaphoresis. Patient has seen cardiology who placed her on beta-roberto and benzos. Patient states that these medications only make her sleep and she is continued to have pain. Patient denies cough cold congestion fevers or chills. - Related Data Previous Rx's Medication Instructions Recorded Last Taken Type Famotidine [Pepcid] 40 mg PO QHS #10 tablet 05/23/20 Unknown Rx Allergies Allergy/AdvReac Type Severity Reaction Status Date / Time triamcinolone Allergy Hives Verified 05/17/20 15:53 Heart Score - HEART Score History: Slightly suspicious EKG: Normal Age: < 45 Risk factors: No known risk factors Troponin: < normal limit HEART Score: 0 ED Review of Systems ROS: Stated complaint: HEART RATE FAST Other details as noted in HPI Comment: All other systems reviewed and negative ED Past Medical Hx - Past Medical History Previous Medical History?: Yes Hx Psychiatric Treatment: Yes (Anxiety) Additional medical history: SVT - Surgical History Past Surgical History?: Yes Additional Surgical History: X 2 - Social History Smoking Status: Never Smoker Substance Use Type: None - Medications Home Medications: Home Medications Medication Instructions Recorded Confirmed Last Taken Type Famotidine [Pepcid] 40 mg PO QHS #10 tablet 05/23/20 Unknown Rx ED Physical Exam - General Limitations: No Limitations General appearance: alert, in no apparent distress - Head Head exam: Present: atraumatic, normocephalic - Eye Eye exam: Present: normal appearance - ENT ENT exam: Present: mucous membranes moist - Neck Neck exam: Present: normal inspection - Respiratory Respiratory exam: Present: normal lung sounds bilaterally. Absent: respiratory distress, wheezes, rales, rhonchi - Cardiovascular Cardiovascular Exam: Present: regular rate, normal rhythm. Absent: systolic murmur, diastolic murmur, rubs, gallop - GI/Abdominal GI/Abdominal exam: Present: soft, normal bowel sounds. Absent: distended, tenderness, guarding, rebound - Extremities Exam Extremities exam: Present: normal inspection - Back Exam Back exam: Present: normal inspection - Neurological Exam Neurological exam: Present: alert, oriented X3 - Psychiatric Psychiatric exam: Present: normal affect, normal mood - Skin Skin exam: Present: warm, dry, intact, normal color. Absent: rash ED Course Vital Signs 05/23/20 05:39 Temperature 98.4 F Pulse Rate 96 H Respiratory 18 Rate Blood Pressure 114/75 O2 Sat by Pulse 99 Oximetry ED Medical Decision Making - Lab Data Result diagrams: 05/23/20 05:59 05/23/20 05:59 Lab Results 05/23/20 05/23/20 Range/Units 05:59 05:59 WBC 10.4 (4.5-11.0) K/mm3 RBC 4.45 (3.65-5.03) M/mm3 Hgb 14.4 H (10.1-14.3) gm/dl Hct 42.0 (30.3-42.9) % MCV 95 (79-97) fl MCH 32 (28-32) pg MCHC 34 (30-34) % RDW 12.5 L (13.2-15.2) % Plt Count 282 (140-440) K/mm3 Lymph % (Auto) 22.9 (13.4-35.0) % [place] % (Auto) 6.0 (0.0-7.3) % Eos % (Auto) 0.9 (0.0-4.3) % Baso % (Auto) 0.5 (0.0-1.8) % Lymph # (Auto) 2.4 (1.2-5.4) K/mm3 [place] # (Auto) 0.6 (0.0-0.8) K/mm3 Eos # (Auto) 0.1 (0.0-0.4) K/mm3 Baso # (Auto) 0.0 (0.0-0.1) K/mm3 Seg Neutrophils % 69.7 (40.0-70.0) % Seg Neutrophils # 7.2 (1.8-7.7) K/mm3 Sodium 143 (137-145) mmol/L Potassium 4.1 (3.6-5.0) mmol/L Chloride 103.8 (98-107) mmol/L Carbon Dioxide 23 (22-30) mmol/L Anion Gap 20 mmol/L BUN 8 (7-17) mg/dL Creatinine 0.7 (0.6-1.2) mg/dL Estimated GFR > 60 ml/min BUN/Creatinine Ratio 11 % Glucose 99 (65-100) mg/dL Calcium 10.0 (8.4-10.2) mg/dL Troponin T < 0.010 (0.00-0.029) ng/mL - EKG Data -: EKG Interpreted by Me EKG shows normal: sinus rhythm, axis, intervals, QRS complexes, ST-T waves Rate: normal - EKG Data Interpretation: normal EKG - Radiology Data Chest x-ray within normal limit - Medical Decision Making Try to reassure the patient that her laboratory studies EKG are normal. Patient feels that her heart is racing and the beta-roberto is not working but her heart rate is normal at this time. Suggested the patient follow back up with cardiology and get a Holter monitor. Patient states she actually has a Holter monitor on currently. Patient is due to see cardiology tomorrow for echocardiogram and I have instructed the patient that likely they will be able to tell her whether she is having bouts of rhythm abnormality when they analyze her monitor. Patient is stable for discharge. Because GERD is also in the differential for this patient's discomfort added some Pepcid Critical care attestation.: If time is entered above; I have spent that time in minutes in the direct care of this critically ill patient, excluding procedure time. ED Disposition Clinical Impression: Atypical chest pain Disposition: DC-01 TO HOME OR SELFCARE Is pt being admited?: No Does the pt Need Aspirin: No Condition: Stable Instructions: Chest Pain (ED) Referrals: PRIMARY CARE, [Primary Care Provider] - 3-5 Days Time of Disposition: 08:51
== END 2020-05-23 09:04 | disposition home or self-care (01) ==
LOC: ED 05:35
DX: R07.89 Other chest pain (principal); R06.02 Shortness of breath; F41.9 Anxiety disorder, unspecified; Z98.890 Other specified postprocedural states; Z79.899 Other long term (current) drug therapy; Z88.8 Allergy status to other drugs, medicaments and biological substances
CPT/HCPCS: 36415; 71045; 80048; 84484; 85025; 93005

== ENCOUNTER 2020-11-27 09:28 | Emergency (ER) | payer MEDICAID ==
[2020-11-27 09:45] VITALS: BP 122/62
== END 2020-11-27 19:00 | disposition left against medical advice (07) ==
LOC: ED 09:28
DX: R07.89 Other chest pain (principal); R20.0 Anesthesia of skin; Z53.21 Procedure and treatment not carried out due to patient leaving prior to being seen by health care provider
CPT/HCPCS: 93005